=== PATIENT | female | born 1965 | race Caucasian/White ===

== ENCOUNTER 2020-07-09 17:48 | Outpatient (CLI) | payer OTHER, SELFPAY ==
[2020-07-09 18:48] LABS: SARS-CoV-2 Ag Negative (Negative)
== END 2020-07-09 17:49 | disposition home or self-care (01) ==
LOC: CHSLAB 17:53
PROVIDERS: PCP Physician Assistant; Visit Provider Physician Assistant
DX: Z20.822 Contact with and (suspected) exposure to COVID-19 (principal)
CPT/HCPCS: 87426; C9803

== ENCOUNTER 2022-07-12 15:23 | Emergency (ER) | payer OTHER, SELFPAY ==
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
[2022-07-12 15:23] VITALS: BP 151/76; PULSE 92; RESP 18; TEMP 37.1; O2SAT 97
[2022-07-12 15:36] VITALS: BP 151/76; PULSE 92; RESP 18; TEMP 37.1; O2SAT 97
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
[2022-07-12 17:15] VITALS: BP 130/82; PULSE 86; RESP 16; O2SAT 98
== END 2022-07-12 17:20 | disposition home or self-care (01) ==
PROVIDERS: Emergency Provider Family Medicine; PCP Physician Assistant
DX: M54.2 Cervicalgia (principal); R51.9 Headache, unspecified; S60.052A Contusion of left little finger without damage to nail, initial encounter; S60.042A Contusion of left ring finger without damage to nail, initial encounter; M25.512 Pain in left shoulder; V89.2XXA Person injured in unspecified motor-vehicle accident, traffic, initial encounter
CPT/HCPCS: 71101; 72125; 73030; 73130; 99284